=== PATIENT | male | born 1965 | race Caucasian/White ===

== ENCOUNTER → 2022-08-23 | Outpatient (CLI) | payer BC ==
[~2022-08-23] MED LIST: HYDMOR2 PO; NAPR550 PO; PROM25 PO; RXHYDMOR2 PO
== END | disposition home or self-care (01) ==
LOC: PLD 07:40 → LAB SHORT 07:40
DX: C44.519 Basal cell carcinoma of skin of other part of trunk (principal)
CPT/HCPCS: 88305

== ENCOUNTER 2022-08-30 08:09 | Day surgery (SDC) | payer BC ==
[~2022-08-30] VITALS: Ht 188 cm; Wt 85.3 kg
--- NOTE | 2022-08-30 08:28 | NUR ---
08/30/22 0828 Khushboo Herrera HISTORY, CHART, MEDICATIONS AND ALLERGIES REVIEWED BEFORE START OF PROCEDURE. PATIENT CONFIRMS NPO STATUS AND AGREES WITH SCHEDULED PROCEDURE. 3-LEAD EKG REVIEWED WITH PHYSICIAN PRIOR TO START OF PROCEDURE. MONITOR INTACT WITH CONTINUOUS PULSE OXIMETRY,CAPNOGRAPHY, 3-LEAD EKG, INTERMITTENT BP. SUPPLEMENTAL O2 TO BE TITRATED THROUGHOUT PROCEDURE TO MAINTAIN O2 SATURATION ABOVE 90%. PATIENT DETERMINED TO BE ASA APPROPRIATE FOR PROPOFOL SEDATION PRIOR TO START OF PROCEDURE BY DR. LANTIGUA.
--- NOTE | 2022-08-30 08:30 | NUR ---
History, Chart, Medications and Allergies reviewed before start of procedure. Lungs clear T/O to Auscultation. Patient confirms NPO status and agrees with scheduled surgery. Pre-Op teaching done. Pt verbalizes understanding. Patient states colon prep results clear. Patient States Post-Procedure ride home has been arranged.
== END 2022-08-30 22:45 | disposition home or self-care (01) ==
LOC: ORSCMMR 08:09 → ORD 08:30 → ORSCMMR 08:30
PROVIDERS: Internal Medicine Gastroenterology
PROC: 0DBN8ZX Excision of Sigmoid Colon, Via Natural or Artificial Opening Endoscopic, Diagnostic (ICD-10-PCS; principal; 2022-08-30 08:30)
DX: Z12.11 Encounter for screening for malignant neoplasm of colon (principal); K63.5 Polyp of colon; K57.30 Diverticulosis of large intestine without perforation or abscess without bleeding
CPT/HCPCS: 88305; J2704; J7120

== ENCOUNTER → 2022-09-13 | Outpatient (CLI) | payer BC | END | disposition home or self-care (01) | LOC: LAB SHORT 16:09 → LAB 16:09 | DX: L03.114 Cellulitis of left upper limb (principal) | CPT/HCPCS: 87070; 87077; 87147; 87186; 87205 ==